=== PATIENT | female | born 1965 | race African-American/Black ===

== ENCOUNTER 2018-06-01 00:13 | Emergency (ER) | payer OTHER, MEDICARE ==
[~2018-06-01] VITALS: Ht 149.9 cm; Wt 125.0 kg
[2018-06-01] MEDS ORDERED: HYDROCODONE/ACETAMINOPHEN 5/325MG TABLET PO ONE (04:00)
[2018-06-01 10:19] VITALS: BP 128/68
== END 2018-06-01 10:23 | disposition home or self-care (01) ==
LOC: ER 00:13
DX: M25.561 Pain in right knee (principal); F12.10 Cannabis abuse, uncomplicated; Z90.49 Acquired absence of other specified parts of digestive tract; Z98.51 Tubal ligation status; Z98.890 Other specified postprocedural states; Z88.0 Allergy status to penicillin
CPT/HCPCS: 73502; 73562; 93970; 99284

== ENCOUNTER 2018-08-05 20:31 | Inpatient (IN) | payer MEDICARE, OTHER ==
[~2018-08-05] VITALS: Ht 149.9 cm; Wt 127.0 kg
[2018-08-06] MEDS ORDERED: ASPIRIN 81MG TABLET PO ONE (00:30)
[2018-08-06] MEDS ORDERED: HYDROCODONE/ACETAMINOPHEN 10/325MG TABLET PO ONE (00:30)
[2018-08-06] MEDS ORDERED: NITROGLYCERIN OINT 1GM/INCH UDPKT TD ONE (00:30)
[2018-08-06 00:55] LABS: BASOPHILS % 0.9 % (0.0-2.0); EOSINOPHILS % 2.9 % (0.0-5.0); HEMATOCRIT. 41.2 % (36.0-48.0); LYMPHOCYTES % 28.8 % (20.0-50.0); MEAN CORPUSCULAR HEMOGLOBIN 33.3 pg (28.0-32.0); MEAN CORPUSCULAR VOLUME 97.7 fL (81.0-99.0); MEAN PLATELET VOLUME 9.6 fl (7.4-10.4); MONOCYTES % 7.6 % (2.0-8.0); NEUTROPHILS % 59.8 % (40.0-76.0); PLATELET 216 x1000/uL (130-400); RED BLOOD CELL COUNT 4.21 mill/uL (4.2-5.4); RED CELL DISTRIBUTION WIDTH 13.5 % (11.6-14.6)
[2018-08-06 00:59] LABS: CHLORIDE 106 mEq/L (98-107)
[2018-08-06] MEDS ORDERED: MORPHINE SULFATE 4 MG/ML CPJ (NOT FOR IM USE) IV ONE (03:15)
[2018-08-06 08:00] VITALS: BP 123/61
[2018-08-06 08:54] VITALS: BP 123/61
[2018-08-06] MEDS ORDERED: S350 PO (09:01)
[2018-08-06] MEDS ORDERED: IBUP-2321 PO (09:01)
[2018-08-06] MEDS ORDERED: ACETAMINOPHEN 325MG TABLET PO PRN ×2 (10:00→11:00)
[2018-08-06 10:17] VITALS: BP 127/59
[2018-08-06] MEDS: HYDROCODONE/ACETAMINOPHEN 5/325MG TABLET PO PRN ×3 (10:17→20:27)
[2018-08-06] MEDS ORDERED: HYDROCODONE/ACETAMINOPHEN 5/325MG TABLET PO PRN (11:00)
[2018-08-06] MEDS ORDERED: ONDANSETRON HCL 4MG/2ML INJ IV PRN (11:00)
[2018-08-06] MEDS ORDERED: DOCUSATE SODIUM 100MG CAPSULE PO PRN (11:00)
[2018-08-06] MEDS ORDERED: DIPHENHYDRAMINE 50MG/ML VIAL IV PRN (11:00)
[2018-08-06] MEDS ORDERED: NA PHOS,M-B/NA PHOS,DI-BA ENEMA 118ML PR PRN (11:00)
[2018-08-06] MEDS ORDERED: ACETAMINOPHEN 650MG SUPP PR PRN (11:00)
[2018-08-06] MEDS ORDERED: MAGNESIUM/ALUMINUM HYDROXIDE/SIMETHICONE 30ML UDC PO PRN (11:00)
[2018-08-06] MEDS ORDERED: GUAIFENESIN 200MG/10ML SUGAR FREE UDC PO PRN (11:00)
[2018-08-06] MEDS ORDERED: LORAZEPAM 0.5MG TABLET PO PRN (11:00)
[2018-08-06] MEDS ORDERED: IPRATROPIUM/ALBUTEROL 0.5-3(2.5)MG/3ML NEB INH PRN (11:00)
[2018-08-06] MEDS ORDERED: HYDRALAZINE 20MG/ML VIAL IV PRN (11:00)
[2018-08-06 12:00] VITALS: BP 137/77
[2018-08-06 14:46] LABS: BG FRACTION INSPIRED OXYGEN 21; BG HCO3 ACT 24.4 mmol/L (22.0-26.0); BG PCO2 39.4 mmHg (35.0-45.0); BG PH 7.409 (7.350-7.450); BG PO2 77.7 mmHg (75.0-100.0); BG SAMPLE SITE RIGHT RADIAL; BG VENT MODE ROOM AIR
[2018-08-06 14:47] LABS: BG BASE EXCESS -0.1 mmol/L (-2.0-2.0); BG CARBOXYHEMOGLOBIN 1.4 % (0.5-1.5); BG DEOXYHEMOGLOBIN 4.9 % (0.0-5.0); BG METHEMOGLOBIN 0.2 % (0.0-1.5); BG OXYHEMOGLOBIN 93.5 % (94.0-97.0); BG TOTAL HEMOGLOBIN 14.6 g/dL (12.0-18.0)
[2018-08-06 16:00] VITALS: BP 144/77
[2018-08-06 16:34] LABS: CREATINE KINASE 49 IU/L (26-192)
[2018-08-06 16:35] LABS: CREATINE KINASE MB FRACTION < 1.0 ng/mL (0.5-3.6)
[2018-08-06 17:32] LABS: CLARITY URINE CLEAR (CLEAR); COLOR URINE YELLOW (YELLOW); KETONES URINE NEGATIVE (NEGATIVE); LEUKOCYTE ESTERASE URINE NEGATIVE (NEGATIVE); NITRITE URINE NEGATIVE (NEGATIVE); OCCULT BLOOD URINE NEGATIVE (NEGATIVE); PH URINE 5.5 (4.5-8.0); PROTEIN URINE NEGATIVE (NEGATIVE); SPECIFIC GRAVITY URINE 1.025 (1.005-1.030); UROBILINOGEN URINE 0.2 E.U./dL (0.2-1.0)
[2018-08-06 17:47] LABS: *AMPHETAMINES SCREEN URINE NEGATIVE (NEGATIVE); *BARBITURATES SCREEN URINE NEGATIVE (NEGATIVE); *BENZODIAZEPINES SCREEN URINE NEGATIVE (NEGATIVE); CANNABINOID URINE SCREEN PRESUMTIVE POSITIVE (NEGATIVE); METHADONE URINE SCREEN NEGATIVE (NEGATIVE); OPIATES URINE SCREEN PRESUMTIVE POSITIVE (NEGATIVE); PHENCYCLIDINE URINE SCREEN NEGATIVE (NEGATIVE)
[2018-08-06 17:48] LABS: *COCAINE SCREEN URINE NEGATIVE (NEGATIVE)
[2018-08-06] MEDS: ENOXAPARIN 40MG/0.4ML SYR SUBCUT SCH (18:06)
[2018-08-06 20:00] VITALS: BP 112/46
[2018-08-06 22:45] LABS: CREATINE KINASE 57 IU/L (26-192)
[2018-08-06 22:46] LABS: CREATINE KINASE MB FRACTION < 1.0 ng/mL (0.5-3.6)
[2018-08-07 00:07] VITALS: BP 130/61
[2018-08-07 04:00] VITALS: BP 134/68
[2018-08-07] MEDS: ENOXAPARIN 40MG/0.4ML SYR SUBCUT SCH ×2 (05:43→17:46)
[2018-08-07 07:26] LABS: CHLORIDE 105 mEq/L (98-107)
[2018-08-07 07:27] LABS: BASOPHILS % 0.7 % (0.0-2.0); EOSINOPHILS % 3.9 % (0.0-5.0); HEMATOCRIT. 42.6 % (36.0-48.0); HEMOGLOBIN. 14.2 g/dL (12.0-16.0); LYMPHOCYTES % 29.2 % (20.0-50.0); MEAN CORPUSCULAR HEMOGLOBIN 32.4 pg (28.0-32.0); MEAN CORPUSCULAR VOLUME 97.4 fL (81.0-99.0); MEAN PLATELET VOLUME 10.3 fl (7.4-10.4); MONOCYTES % 8.5 % (2.0-8.0); NEUTROPHILS % 57.7 % (40.0-76.0); PLATELET 215 x1000/uL (130-400); RED BLOOD CELL COUNT 4.37 mill/uL (4.2-5.4); RED CELL DISTRIBUTION WIDTH 13.4 % (11.6-14.6)
[2018-08-07 07:40] LABS: T4 FREE 1.01 ng/dL (0.76-1.46)
[2018-08-07 07:41] LABS: LDL CHOLESTEROL 141 mg/dL (5-100)
[2018-08-07 07:48] LABS: HDL CHOLESTEROL 41 mg/dL (40-59)
[2018-08-07 08:00] VITALS: BP 148/69
[2018-08-07] MEDS ORDERED: ASPIRIN 81MG EC TABLET PO SCH (09:00)
[2018-08-07 12:00] VITALS: BP 130/62
[2018-08-07] MEDS: HYDROCODONE/ACETAMINOPHEN 5/325MG TABLET PO PRN (12:45)
[2018-08-07 16:00] VITALS: BP 149/69
[2018-08-07 20:00] VITALS: BP 139/80
[2018-08-07] MEDS ORDERED: ATORVASTATIN CALCIUM 10MG TABLET PO SCH (21:00)
== END 2018-08-07 20:15 | disposition home or self-care (01) | DRG 152 ==
LOC: ER 20:31 → 7WST 08-06 05:36 → EDBEDREQ 08-06 05:40 → EDBEDREQTM 08-06 05:40 → ENRESERV 08-06 07:01
PROVIDERS: ADMIT Internal Medicine; ATTEND Internal Medicine
DX: J06.9 Acute upper respiratory infection, unspecified (principal); I50.33 Acute on chronic diastolic (congestive) heart failure; Z68.43 Body mass index [BMI] 50.0-59.9, adult; R07.89 Other chest pain; I11.0 Hypertensive heart disease with heart failure; E78.5 Hyperlipidemia, unspecified; F12.90 Cannabis use, unspecified, uncomplicated; G89.29 Other chronic pain; M19.90 Unspecified osteoarthritis, unspecified site; E66.9 Obesity, unspecified; R73.9 Hyperglycemia, unspecified; M54.9 Dorsalgia, unspecified; Z90.49 Acquired absence of other specified parts of digestive tract; Z98.51 Tubal ligation status; Z88.0 Allergy status to penicillin
CPT/HCPCS: 36415; 36600; 71045; 80061; 80305; 82375; 82550; 82553; 82805; 83036; 83880; 84439; 84443; 84484; 85379; 87070; 93005; 93306; 93970; 96372; 96374; 99285; J1650; J2270

== ENCOUNTER 2018-12-13 22:24 | Emergency (ER) | payer OTHER ==
[~2018-12-13] VITALS: Ht 149.9 cm; Wt 132.5 kg
[~2018-12-13 22:24] MED LIST: IBUP-2321 PO; S350 PO
[2018-12-14] MEDS ORDERED: KETOROLAC 60MG/2ML VIAL IM STA (01:24)
[2018-12-14] MEDS ORDERED: BACITRACIN ZINC OINT UDPKT TOP ONE (01:30)
[2018-12-14] MEDS ORDERED: LIDOCAINE 1%/EPI 1:100,000 10 ML VIAL IJ ONE (01:30)
[2018-12-14] MEDS ORDERED: BACITRACIN 15GM TUBE TOP SCH (01:45)
[2018-12-14] MEDS ORDERED: LIDOCAINE HCL/EPINEPHRINE 1%-EPI 1:100,000 20 ML VIAL INFIL NR (01:45)
[2018-12-14 03:31] VITALS: BP 135/78
== END 2018-12-14 04:04 | disposition home or self-care (01) ==
LOC: ER 22:24
DX: L05.01 Pilonidal cyst with abscess (principal); F12.10 Cannabis abuse, uncomplicated; M19.90 Unspecified osteoarthritis, unspecified site; Z90.49 Acquired absence of other specified parts of digestive tract; Z98.890 Other specified postprocedural states; Z88.0 Allergy status to penicillin; Z79.899 Other long term (current) drug therapy; Z98.51 Tubal ligation status; Z96.659 Presence of unspecified artificial knee joint
CPT/HCPCS: 96372; 99283; J1885; J3490

== ENCOUNTER 2022-01-05 01:07 | Emergency (ER) | payer MEDICAID, MEDICARE, OTHER ==
[~2022-01-05] VITALS: Ht 149.9 cm; Wt 128.0 kg
[~2022-01-05 01:07] MED LIST changes: +CARI350T28 PO; -S350 PO
[2022-01-05 01:23] VITALS: BP 152/79
[2022-01-05] MEDS ORDERED: HYDROCODONE/ACETAMINOPHEN 5/325MG TABLET PO ONE (08:00)
[2022-01-05] MEDS ORDERED: IBUPROFEN 600MG TABLET PO ONE (08:00)
[2022-01-05] MEDS ORDERED: TOPUD MT (09:38)
[2022-01-05] MEDS ORDERED: IBUP-2029 MT (09:38)
== END 2022-01-05 10:06 | disposition home or self-care (01) ==
LOC: ER 01:07
DX: M25.471 Effusion, right ankle (principal); Z88.0 Allergy status to penicillin; Z90.49 Acquired absence of other specified parts of digestive tract; Z98.51 Tubal ligation status; Z98.890 Other specified postprocedural states
CPT/HCPCS: 73610; 93971; 99284